=== PATIENT | female | born 1970 ===

== ENCOUNTER 2018-03-26 10:52 | Outpatient (CLI) | payer OTHER | END 2018-03-26 17:05 | disposition home or self-care (01) | LOC: NUCLEAR 10:52 | DX: E05.00 Thyrotoxicosis with diffuse goiter without thyrotoxic crisis or storm (principal) | CPT/HCPCS: 78012; A9531 ==

== ENCOUNTER → 2018-03-27 | Outpatient (CLI) | payer OTHER | END | disposition home or self-care (01) | LOC: NUCLEAR 14:32 | DX: E05.00 Thyrotoxicosis with diffuse goiter without thyrotoxic crisis or storm (principal) | CPT/HCPCS: 78013; A9512 ==